=== PATIENT | female | born 1995 | race American Indian/Alaskan Native ===

== ENCOUNTER 2018-04-09 20:07 | Emergency (ER) | payer MEDICAID ==
[2018-04-09 20:19] VITALS: RESP 16; TEMP 97.9
--- NOTE | 2018-04-09 21:58 | ED PDOC ---
Arrival/HPI - General Chief Complaint: Female Genitourinary Time Seen by Provider: 04/09/18 20:16 Historian: Patient - History of Present Illness Narrative History of Present Illness (Text): 04/09/18 20:45 22 year old female, with no significant past medical history, presents to the Emergency department stating she wants to confirm being . Patient states she did her own test which was positive. Her last menstrual period was one month ago. Patient denies any somatic complaints. Patient denies any fever, chills, abdominal pain, nausea, vomiting, diarrhea, vaginal discharge , vaginal bleeding, urinary discharge, or any other complaints. Symptom Onset: Gradual Symptom Course: Unchanged Activities at Onset: Light Context: Home Past Medical History - Provider Review Nursing Documentation Reviewed: Yes - Psychiatric Hx Psychophysiologic Disorder: No Hx Substance Use: No Family/Social History - Physician Review Nursing Documentation Reviewed: Yes Family/Social History: No Known Family HX Smoking Status: Never Smoked Hx Alcohol Use: No Hx Substance Use: No Allergies/Home Meds Allergies/Adverse Reactions: Allergies No Known Allergies Allergy (Verified 04/09/18 20:13) Home Medications: Home Meds Medication Instructions Recorded Confirmed No Known Home Med 04/09/18 04/09/18 Review of Systems - Physician Review All systems were reviewed & negative as marked: Yes - Review of Systems Constitutional: absent: Fevers, Other (Chills) Gastrointestinal: absent: Abdominal Pain, Diarrhea, Nausea, Vomiting Genitourinary Female: absent: Dysuria, Frequency, Hematuria, Vaginal Bleeding, Vaginal Discharge Physical Exam Vital Signs Reviewed: Yes Vital Signs Temp Pulse Resp BP Pulse Ox 04/10/18 01:03 87 16 130/68 99 04/10/18 00:45 97.9 F 87 16 130/68 99 04/09/18 22:02 82 16 120/70 97 04/09/18 20:14 97.9 F 95 H 16 123/78 100 Temperature: Afebrile Blood Pressure: Normal Pulse: Regular Respiratory Rate: Normal Appearance: Positive for: Well-Appearing, Non-Toxic, Comfortable Pain Distress: None Mental Status: Positive for: Alert and Oriented X 3 - Systems Exam Head: Present: Atraumatic, Normocephalic Pupils: Present: PERRL Extroacular Muscles: Present: EOMI Conjunctiva: Present: Normal Mouth: Present: Moist Mucous Membranes Neck: Present: Normal Range of Motion Respiratory/Chest: Present: Clear to Auscultation, Good Air Exchange. No: Respiratory Distress, Accessory Muscle Use Cardiovascular: Present: Regular Rate and Rhythm, Normal S1, S2. No: Murmurs Abdomen: No: Tenderness, Distention, Peritoneal Signs Back: Present: Normal Inspection Upper Extremity: Present: Normal Inspection. No: Cyanosis, Edema Lower Extremity: Present: Normal Inspection. No: Edema Neurological: Present: GCS=15, CN II-XII Intact, Speech Normal Skin: Present: Warm, Dry, Normal Color. No: Rashes Psychiatric: Present: Alert, Oriented x 3, Normal Insight, Normal Concentration Medical Decision Making ED Course and Treatment: 04/09/18 20:45 Impression: 22 year old female presenting stating she wants to confirm her being . Plan: -- HCG, Qualitative Urine -- Reassess and disposition Progress Notes: 04/10/18 00:45 On re-evaluation, patient feels better and is in no acute distress. I have discussed the results and plan with the patient, who expresses understanding. Patient in agreement with plan to be discharged home. Patient is stable for discharge. Patient was instructed to follow up with physician or return if symptoms worsen or new concerning symptoms arise. - Lab Interpretations Lab Results: Lab Results 04/09/18 22:40: Beta HCG, Quant 115.10 H 04/09/18 21:18: Urine HCG, Qual Positive I have reviewed the lab results: Yes - Scribe Statement The provider has reviewed the documentation as recorded by the Pattie Vivas Provider Scribe Attestation: All medical record entries made by the Pattie were at my direction and personally dictated by me. I have reviewed the chart and agree that the record accurately reflects my personal performance of the history, physical exam, medical decision making, and the department course for this patient. I have also personally directed, reviewed, and agree with the discharge instructions and disposition. Disposition/Present on Arrival - Present on Arrival Any Indicators Present on Arrival: No History of DVT/PE: No History of Uncontrolled Diabetes: No Urinary Catheter: No History of Decub. 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
[2018-04-10 01:03] VITALS: BP 130/68; PULSE 87; O2SAT 99
== END 2018-04-10 00:45 | disposition home or self-care (01) ==
LOC: MERGE 20:07 → ED 20:07
DX: O26.891 Other specified pregnancy related conditions, first trimester (principal); Z3A.00 Weeks of gestation of pregnancy not specified